=== PATIENT | female | born 1995 | race Caucasian/White ===

== ENCOUNTER 2023-07-06 07:55 | Emergency (ER) | payer SELFPAY ==
[2023-07-06] MEDS: Sodium Chloride 0.9% 10 ML Syringe FLUSH PRN (08:32)
[2023-07-06] MEDS: Sodium Chloride 0.9% 1,000 ML IV STA ×2 (08:45→10:15)
[2023-07-06] MEDS: Ondansetron 4 MG/2 ML SDV IVPUSH ONE (08:45)
[2023-07-06 08:51] LABS: BASOPHILS PERCENT AUTO 0.3 % (0.0-1.0); HEMOGLOBIN 15.4 gm/dl (12.0-16.0); IMMATURE GRAN ABSOLUTE AUTO 0.05 K/mm3 (0.00-0.05); IMMATURE GRAN PERCENT AUTO 0.4 % (0.0-0.4); LYMPHOCYTES PERCENT AUTO 17.5 % (24.0-44.0); MEAN CORPUSCULAR HEMOGLOBIN 31.2 pg (28.0-32.0); MEAN CORPUSCULAR HGB CONC 35.8 g/dl (32.0-36.0); MEAN CORPUSCULAR VOLUME 87.2 fl (83.0-99.0); MEAN PLATELET VOLUME 10.1 fl (9.4-12.3); MONOCYTES ABSOLUTE AUTO 1.2 K/mm3 (0.0-0.8); MONOCYTES PERCENT AUTO 10.5 % (0.0-8.0); NEUTROPHILS ABSOLUTE AUTO 8.3 K/mm3 (1.8-7.7); NEUTROPHILS PERCENT AUTO 71.3 % (41.0-71.0); PLATELET COUNT,PLT 398 K/mm3 (150-400); RED BLOOD CELL COUNT 4.93 M/mm3 (4.10-5.30); WHITE BLOOD CELL COUNT,WBC 11.64 K/mm3 (3.9-11.3)
[2023-07-06 09:05] LABS: A/G RATIO 1.3 (1-2); ALBUMIN 4.8 g/dl (3.4-5.0); ANION GAP 13.3 (5-15); BILIRUBIN TOTAL 1.2 mg/dL (0.2-1.0); BUN/CREATININE RATIO 20.9 (14-18); C-REACTIVE PROTEIN 0.05 mg/dL (<0.30); CALCIUM 9.6 mg/dL (8.5-10.1); CREATININE 1.1 mg/dL (0.55-1.02); EST CRCL DRUG DOSING (CG) 69.04 mL/min; POTASSIUM,K 3.3 mEq/L (3.5-5.1); PROTEIN TOTAL,TP 8.6 g/dl (6.4-8.2)
[2023-07-06 10:10] LABS: APPEARANCE,URINE SLT CLOUDY (Clear); BILIRUBIN,URINE 1+ (Negative); COLOR,URINE YELLOW (Yellow); EPITHELIAL CELLS,URINE 0-5 /hpf (0-5); GLUCOSE,URINE NEGATIVE (Negative); KETONES,URINE 3+ (Negative); LEUKOCYTE ESTERASE,URINE NEGATIVE (Negative); NITRITE,URINE NEGATIVE (Negative); OCCULT BLOOD,URINE TRACE-LYSED (Negative); PH,URINE 5.5 (5.0-8.0); PROTEIN,URINE TRACE (Negative); RBC,URINE 0-5 /hpf (0-5); UROBILINOGEN,URINE 0.2 (0.2-1.0); WBC,URINE 0-5 /hpf (0-5)
[2023-07-06 10:11] LABS: BACTERIA,URINE FEW /hpf (FEW); MUCUS,URINE MODERATE /hpf (FEW)
[2023-07-06] MEDS: Alum Hydrox/Mag Hydrox/Simeth 30 ML, Lidocaine 2% 15 ML PO ONE (11:09)
== END 2023-07-06 12:15 | disposition home or self-care (01) ==
LOC: JD.ED 07:55
DX: R11.2 Nausea with vomiting, unspecified (principal); Z79.899 Other long term (current) drug therapy; Z86.16 Personal history of COVID-19
CPT/HCPCS: 36415; 80053; 81001; 81025; 85025; 86140; 96361; 96374; 99284; A9270; J2405; J3490; J7030; 99283

== ENCOUNTER 2023-07-11 11:09 | Emergency (ER) | payer OTHER ==
[2023-07-11 11:46] LABS: BASOPHILS PERCENT AUTO 0.3 % (0.0-1.0); EOSINOPHILS PERCENT AUTO 0.2 % (0.0-6.0); HEMATOCRIT 43.1 % (37.0-47.0); HEMOGLOBIN 15.2 gm/dl (12.0-16.0); IMMATURE GRAN ABSOLUTE AUTO 0.05 K/mm3 (0.00-0.05); IMMATURE GRAN PERCENT AUTO 0.5 % (0.0-0.4); LYMPHOCYTES ABSOLUTE AUTO 1.7 K/mm3 (1.0-4.8); LYMPHOCYTES PERCENT AUTO 16.9 % (24.0-44.0); MEAN CORPUSCULAR HEMOGLOBIN 30.7 pg (28.0-32.0); MEAN CORPUSCULAR HGB CONC 35.3 g/dl (32.0-36.0); MEAN CORPUSCULAR VOLUME 87.1 fl (83.0-99.0); MONOCYTES ABSOLUTE AUTO 0.9 K/mm3 (0.0-0.8); MONOCYTES PERCENT AUTO 9.2 % (0.0-8.0); NEUTROPHILS ABSOLUTE AUTO 7.2 K/mm3 (1.8-7.7); NEUTROPHILS PERCENT AUTO 72.9 % (41.0-71.0); PLATELET COUNT,PLT 341 K/mm3 (150-400); RED BLOOD CELL COUNT 4.95 M/mm3 (4.10-5.30); WHITE BLOOD CELL COUNT,WBC 9.89 K/mm3 (3.9-11.3)
[2023-07-11 12:04] LABS: A/G RATIO 1.4 (1-2); ALBUMIN 4.6 g/dl (3.4-5.0); ANION GAP 14.8 (5-15); BILIRUBIN TOTAL 0.6 mg/dL (0.2-1.0); BUN/CREATININE RATIO 13.3 (14-18); CALCIUM 9.2 mg/dL (8.5-10.1); CREATININE 1.2 mg/dL (0.55-1.02); EST CRCL DRUG DOSING (CG) 63.93 mL/min; MAGNESIUM 2.3 mg/dL (1.8-2.4); POTASSIUM,K 3.8 mEq/L (3.5-5.1)
[2023-07-11] MEDS: Sodium Chloride 0.9% 1,000 ML IV ONE (12:07)
[2023-07-11 12:10] LABS: INR 1.11; PROTHROMBIN TIME 11.8 SECONDS (9.7-12.0)
[2023-07-11] MEDS: Ondansetron 4 MG/2 ML SDV IVPUSH ONE (12:12)
[2023-07-11] MEDS: Pantoprazole 40 MG Vial IVPUSH ONE (12:15)
[2023-07-11] MEDS: Morphine 4 MG/ML Syringe IVPUSH ONE (12:15)
[2023-07-11] MEDS: Sodium Chloride 0.9% 10 ML Syringe FLUSH PRN (12:16)
[2023-07-11] MEDS: Iopamidol 612 MG/ML 100 ML Bottle IVPUSH ONE (12:33)
[2023-07-11 12:50] LABS: APPEARANCE,URINE CLOUDY (Clear); BILIRUBIN,URINE NEGATIVE (Negative); COLOR,URINE LIGHT YELLOW (Yellow); GLUCOSE,URINE NEGATIVE (Negative); KETONES,URINE 2+ (Negative); LEUKOCYTE ESTERASE,URINE NEGATIVE (Negative); NITRITE,URINE NEGATIVE (Negative); OCCULT BLOOD,URINE TRACE-LYSED (Negative); PH,URINE 7.5 (5.0-8.0); PROTEIN,URINE NEGATIVE (Negative); UROBILINOGEN,URINE 0.2 (0.2-1.0)
[2023-07-11 13:09] LABS: RBC,URINE 0-5 /hpf (0-5); SQUAMOUS EPITHELIAL CELLS,UR 0-5 /hpf (0-5); WBC,URINE 0-5 /hpf (0-5)
[2023-07-11 13:10] LABS: AMORPHOUS SEDIMENT,URINE MANY /hpf (NOT SEEN); BACTERIA,URINE MODERATE /hpf (FEW); MUCUS,URINE FEW /hpf (FEW)
[2023-07-11] MEDS: Promethazine 12.5 MG in Sodium Chloride 0.9% 50 ML IV ONE (13:33)
[2023-07-11] MEDS: metroNIDAZOLE 500 MG Tab PO STA (15:10)
[2023-07-11] MEDS: Levofloxacin/Dextrose 5%-Water 750 MG in Premix Bag 1 BAG IV ONE (15:13)
== END 2023-07-11 14:35 | disposition home or self-care (01) ==
LOC: JD.ED 11:09
DX: K29.00 Acute gastritis without bleeding (principal); K52.9 Noninfective gastroenteritis and colitis, unspecified; N28.9 Disorder of kidney and ureter, unspecified; E86.0 Dehydration; Z86.16 Personal history of COVID-19; Z79.899 Other long term (current) drug therapy
CPT/HCPCS: 36415; 74177; 74177-26; 80053; 81001; 81025; 83605; 83690; 83735; 85025; 85610; 96361; 96365; 96375; 99284; 99284-25; A9270-GY; C9113; J1956; J2270; J2405; J3490; J7030; Q9967

== ENCOUNTER 2023-10-11 09:48 | Emergency (ER) | payer SELFPAY ==
[2023-10-11] MEDS: Iopamidol 755 Mg/ML 100 ML Bottle IVPUSH ONE (10:34)
[2023-10-11] MEDS: HYDROmorphone 0.5 MG/0.5 ML Syringe IVPUSH ONE (10:35)
[2023-10-11] MEDS: Sodium Chloride 0.9% 10 ML Syringe FLUSH PRN ×2 (10:35→11:07)
[2023-10-11] MEDS: Ondansetron 4 MG/2 ML SDV IVPUSH ONE (10:35)
[2023-10-11] MEDS: Sodium Chloride 0.9% 1,000 ML IV STA (10:35)
[2023-10-11 10:50] LABS: BASOPHILS PERCENT AUTO 0.1 % (0.0-1.0); EOSINOPHILS PERCENT AUTO 0.1 % (0.0-6.0); HEMATOCRIT 39.9 % (37.0-47.0); HEMOGLOBIN 14.2 gm/dl (12.0-16.0); IMMATURE GRAN ABSOLUTE AUTO 0.03 K/mm3 (0.00-0.05); IMMATURE GRAN PERCENT AUTO 0.3 % (0.0-0.4); LYMPHOCYTES ABSOLUTE AUTO 1.6 K/mm3 (1.0-4.8); LYMPHOCYTES PERCENT AUTO 14.8 % (24.0-44.0); MEAN CORPUSCULAR HEMOGLOBIN 31.1 pg (28.0-32.0); MEAN CORPUSCULAR HGB CONC 35.6 g/dl (32.0-36.0); MEAN CORPUSCULAR VOLUME 87.5 fl (83.0-99.0); MEAN PLATELET VOLUME 9.8 fl (9.4-12.3); MONOCYTES ABSOLUTE AUTO 1.2 K/mm3 (0.0-0.8); MONOCYTES PERCENT AUTO 10.7 % (0.0-8.0); NEUTROPHILS ABSOLUTE AUTO 8.2 K/mm3 (1.8-7.7); PLATELET COUNT,PLT 359 K/mm3 (150-400); RED BLOOD CELL COUNT 4.56 M/mm3 (4.10-5.30); WHITE BLOOD CELL COUNT,WBC 11.09 K/mm3 (3.9-11.3)
[2023-10-11 10:52] LABS: A/G RATIO 1.3 (1-2); ALBUMIN 5.1 g/dl (3.4-5.0); ANION GAP 17.6 (5-15); BUN/CREATININE RATIO 19.1 (14-18); CREATININE 1.1 mg/dL (0.55-1.02); EST CRCL DRUG DOSING (CG) 67.15 mL/min; MAGNESIUM 2.5 mg/dL (1.8-2.4); POTASSIUM,K 3.6 mEq/L (3.5-5.1)
[2023-10-11] MEDS: Metoclopramide 10 MG/2 ML SDV IVPUSH ONE (12:04)
[2023-10-11 12:07] LABS: APPEARANCE,URINE CLEAR (Clear); BILIRUBIN,URINE NEGATIVE (Negative); COLOR,URINE YELLOW (Yellow); GLUCOSE,URINE NEGATIVE (Negative); KETONES,URINE 3+ (Negative); LEUKOCYTE ESTERASE,URINE NEGATIVE (Negative); NITRITE,URINE NEGATIVE (Negative); OCCULT BLOOD,URINE NEGATIVE (Negative); PH,URINE 7.5 (5.0-8.0); PROTEIN,URINE TRACE (Negative); UROBILINOGEN,URINE 0.2 (0.2-1.0)
[2023-10-11 13:17] LABS: BACTERIA,URINE FEW /hpf (FEW); EPITHELIAL CELLS,URINE 0-5 /hpf (0-5); MUCUS,URINE NOT SEEN /hpf (FEW); RBC,URINE 0-5 /hpf (0-5); WBC,URINE 0-5 /hpf (0-5)
== END 2023-10-11 13:15 | disposition home or self-care (01) ==
LOC: JD.ED 09:48
DX: K52.9 Noninfective gastroenteritis and colitis, unspecified (principal); Z86.16 Personal history of COVID-19
CPT/HCPCS: 36415; 74177; 80053; 81001; 83690; 83735; 84703; 85025; 96361; 96374; 96375; 99284; J1170; J2405; J2765; J3490; J7030; Q9967

== ENCOUNTER 2024-03-01 10:19 | Emergency (ER) | payer SELFPAY ==
[2024-03-01] MEDS: Ondansetron 4 MG/2 ML SDV IVPUSH ONE ×2 (10:41→11:00)
[2024-03-01] MEDS: Sodium Chloride 0.9% 1,000 ML IV ONE ×2 (10:47→11:28)
[2024-03-01] MEDS: Ketorolac 30 MG/ML SDV IVPUSH ONE (11:28)
[2024-03-01] MEDS: diphenhydrAMINE 50 MG/ML SDV IVPUSH ONE (11:28)
[2024-03-01] MEDS: Metoclopramide 10 MG/2 ML SDV IVPUSH ONE (11:28)
[2024-03-01 11:39] LABS: BASOPHILS PERCENT AUTO 0.1 % (0.0-1.0); EOSINOPHILS ABSOLUTE AUTO 0.1 K/mm3 (0.0-0.4); EOSINOPHILS PERCENT AUTO 0.7 % (0.0-6.0); HEMATOCRIT 43.7 % (37.0-47.0); HEMOGLOBIN 15.4 gm/dl (12.0-16.0); IMMATURE GRAN ABSOLUTE AUTO 0.03 K/mm3 (0.00-0.05); IMMATURE GRAN PERCENT AUTO 0.4 % (0.0-0.4); LYMPHOCYTES ABSOLUTE AUTO 1.4 K/mm3 (1.0-4.8); LYMPHOCYTES PERCENT AUTO 17.6 % (24.0-44.0); MEAN CORPUSCULAR HEMOGLOBIN 30.4 pg (28.0-32.0); MEAN CORPUSCULAR HGB CONC 35.2 g/dl (32.0-36.0); MEAN CORPUSCULAR VOLUME 86.4 fl (83.0-99.0); MONOCYTES ABSOLUTE AUTO 0.8 K/mm3 (0.0-0.8); MONOCYTES PERCENT AUTO 10.5 % (0.0-8.0); NEUTROPHILS ABSOLUTE AUTO 5.4 K/mm3 (1.8-7.7); NEUTROPHILS PERCENT AUTO 70.7 % (41.0-71.0); PLATELET COUNT,PLT 374 K/mm3 (150-400); RED BLOOD CELL COUNT 5.06 M/mm3 (4.10-5.30); WHITE BLOOD CELL COUNT,WBC 7.68 K/mm3 (3.9-11.3)
[2024-03-01 11:44] LABS: A/G RATIO 1.2 (1-2); ALBUMIN 4.3 g/dl (3.4-5.0); ANION GAP 15.2 (5-15); BILIRUBIN TOTAL 0.7 mg/dL (0.2-1.0); BUN/CREATININE RATIO 15.5 (14-18); CALCIUM 8.9 mg/dL (8.5-10.1); CREATININE 1.1 mg/dL (0.55-1.02); EST CRCL DRUG DOSING (CG) 65.52 mL/min; MAGNESIUM 2.4 mg/dL (1.8-2.4); POTASSIUM,K 3.2 mEq/L (3.5-5.1); PROTEIN TOTAL,TP 7.8 g/dl (6.4-8.2)
[2024-03-01] MEDS: Potassium Chloride 20 MEQ Tab.ER PO ONE (11:59)
== END 2024-03-01 13:04 | disposition home or self-care (01) ==
LOC: JD.ED 10:19
DX: R10.10 Upper abdominal pain, unspecified (principal); R11.2 Nausea with vomiting, unspecified; E86.0 Dehydration; E87.6 Hypokalemia; Z86.16 Personal history of COVID-19
CPT/HCPCS: 36415; 80053; 83690; 83735; 84703; 85025; 96361; 96374; 96375; 99284; A9270; J1200; J1885; J2405; J2765; J7030

== ENCOUNTER 2024-06-28 11:28 | Emergency (ER) | payer SELFPAY ==
[2024-06-28] MEDS ORDERED: Sodium Chloride 0.9% 10 ML Syringe FLUSH PRN (11:59)
[2024-06-28] MEDS: Ondansetron 4 MG/2 ML SDV ONE (12:07)
[2024-06-28] MEDS: Ondansetron 4 MG/2 ML SDV IVPUSH ONE (12:07)
[2024-06-28] MEDS: Sodium Chloride 0.9% 1,000 ML IV STA (12:07)
[2024-06-28] MEDS: Sodium Chloride 0.9% 1,000 ML ONE (12:07)
[2024-06-28 12:13] LABS: BASOPHILS PERCENT AUTO 0.5 % (0.0-1.0); EOSINOPHILS PERCENT AUTO 0.1 % (0.0-6.0); HEMOGLOBIN 15.3 gm/dl (12.0-16.0); IMMATURE GRAN ABSOLUTE AUTO 0.04 K/mm3 (0.00-0.05); IMMATURE GRAN PERCENT AUTO 0.5 % (0.0-0.4); LYMPHOCYTES ABSOLUTE AUTO 1.7 K/mm3 (1.0-4.8); LYMPHOCYTES PERCENT AUTO 21.1 % (24.0-44.0); MEAN CORPUSCULAR HEMOGLOBIN 30.2 pg (28.0-32.0); MEAN CORPUSCULAR HGB CONC 34.8 g/dl (32.0-36.0); MONOCYTES ABSOLUTE AUTO 0.8 K/mm3 (0.0-0.8); MONOCYTES PERCENT AUTO 10.5 % (0.0-8.0); NEUTROPHILS ABSOLUTE AUTO 5.4 K/mm3 (1.8-7.7); NEUTROPHILS PERCENT AUTO 67.3 % (41.0-71.0); PLATELET COUNT,PLT 417 K/mm3 (150-400); RED BLOOD CELL COUNT 5.06 M/mm3 (4.10-5.30); WHITE BLOOD CELL COUNT,WBC 7.97 K/mm3 (3.9-11.3)
[2024-06-28] MEDS: Famotidine 20 MG/2 ML SDV IVPUSH ONE (12:32)
[2024-06-28 12:50] LABS: A/G RATIO 1.2 (1-2); ALANINE AMINOTRANSFERASE,ALT 26 U/L (14-59); ALBUMIN 4.4 g/dl (3.4-5.0); ALKALINE PHOSPHATASE 61 U/L (46-116); ANION GAP 13.4 (5-15); ASPARTATE AMNIOTRANSFERASE,AST 14 U/L (15-37); BILIRUBIN TOTAL 0.8 mg/dL (0.2-1.0); BLOOD UREA NITROGEN,BUN 19 mg/dL (7-18); BUN/CREATININE RATIO 17.3 (14-18); CALCIUM 9.2 mg/dL (8.5-10.1); CARBON DIOXIDE,CO2 30 mEq/L (21-32); CHLORIDE,CL 96 mEq/L (98-107); CREATININE 1.1 mg/dL (0.55-1.02); EST CRCL DRUG DOSING (CG) 69.13 mL/min; ESTIMATED GFR 71 mL/min (>60); GLUCOSE RANDOM 146 mg/dL (70-99); LIPASE 46 U/L (16-77); POTASSIUM,K 3.4 mEq/L (3.5-5.1); PROTEIN TOTAL,TP 8.2 g/dl (6.4-8.2); SODIUM,NA 136 mEq/L (136-145)
[2024-06-28 12:53] LABS: C-REACTIVE PROTEIN < 0.05 mg/dL (<0.30)
[2024-06-28] MEDS: diphenhydrAMINE 50 MG/ML SDV IVPUSH ONE (13:29)
[2024-06-28] MEDS: Metoclopramide 10 MG/2 ML SDV IVPUSH ONE (13:31)
[2024-06-28 13:52] LABS: APPEARANCE,URINE CLEAR (Clear); BILIRUBIN,URINE NEGATIVE (Negative); COLOR,URINE YELLOW (Yellow); GLUCOSE,URINE NEGATIVE (Negative); KETONES,URINE TRACE (Negative); LEUKOCYTE ESTERASE,URINE NEGATIVE (Negative); NITRITE,URINE NEGATIVE (Negative); OCCULT BLOOD,URINE NEGATIVE (Negative); PH,URINE 8.5 (5.0-8.0); PROTEIN,URINE NEGATIVE (Negative); UROBILINOGEN,URINE 0.2 (0.2-1.0)
[2024-06-28] MEDS: Alum Hydrox/Mag Hydrox/Simeth 30 ML, Lidocaine 2% 15 ML PO ONE (14:04)
[2024-06-28] MEDS: Sucralfate Suspension 1 GM/10 ML Cup PO ONE (15:32)
== END 2024-06-28 15:35 | disposition home or self-care (01) ==
LOC: JD.ED 11:28
DX: K21.9 Gastro-esophageal reflux disease without esophagitis (principal); R11.2 Nausea with vomiting, unspecified; Z86.16 Personal history of COVID-19; Z79.899 Other long term (current) drug therapy
CPT/HCPCS: 36415; 80053; 81003; 83690; 84703; 85025; 86140; 96374; 96375; 99284; A9270; J1200; J2405; J2765; J7030

== ENCOUNTER 2024-06-29 08:26 | Emergency (ER) | payer SELFPAY ==
[2024-06-29] MEDS: Sodium Chloride 0.9% 1,000 ML IV SCH (09:26)
[2024-06-29] MEDS: Pantoprazole 40 MG Vial IVPUSH ONE ×2 (09:26→10:49)
[2024-06-29] MEDS: Ondansetron 4 MG/2 ML SDV IVPUSH ONE (09:26)
[2024-06-29] MEDS: Famotidine 20 MG/2 ML SDV IVPUSH ONE (09:27)
[2024-06-29] MEDS: diphenhydrAMINE 25 MG Cap PO ONE (10:49)
[2024-06-29] MEDS: Metoclopramide 10 MG/2 ML SDV IVPUSH ONE (10:49)
== END 2024-06-29 12:34 | disposition home or self-care (01) ==
LOC: JD.ED 08:26
DX: K21.9 Gastro-esophageal reflux disease without esophagitis (principal); Z79.899 Other long term (current) drug therapy; Z86.16 Personal history of COVID-19; Z87.891 Personal history of nicotine dependence
CPT/HCPCS: 96361; 96374; 96375; 96376; 99283; 99283-25; A9270-GY; J2405; J2470; J2765; J7030

== ENCOUNTER 2024-10-05 05:40 | Emergency (ER) | payer SELFPAY ==
[2024-10-05] MEDS: droPERidol 2.5 MG/ML SDV IV ONE (06:40)
[2024-10-05 06:56] LABS: BASOPHILS ABSOLUTE AUTO 0.0 K/mm3 (0.0-0.2); BASOPHILS PERCENT AUTO 0.2 % (0.0-1.0); EOSINOPHILS ABSOLUTE AUTO 0.0 K/mm3 (0.0-0.4); EOSINOPHILS PERCENT AUTO 0.1 % (0.0-6.0); IMMATURE GRAN ABSOLUTE AUTO 0.04 K/mm3 (0.00-0.05); IMMATURE GRAN PERCENT AUTO 0.3 % (0.0-0.4); LYMPHOCYTES ABSOLUTE AUTO 1.2 K/mm3 (1.0-4.8); LYMPHOCYTES PERCENT AUTO 9.6 % (24.0-44.0); MEAN PLATELET VOLUME 10.2 fl (9.4-12.3); MONOCYTES ABSOLUTE AUTO 1.0 K/mm3 (0.0-0.8); MONOCYTES PERCENT AUTO 8.6 % (0.0-8.0); NEUTROPHILS ABSOLUTE AUTO 9.8 K/mm3 (1.8-7.7); NEUTROPHILS PERCENT AUTO 81.2 % (41.0-71.0); NRBC ABSOLUTE 0.00 (0.00-0.02); NRBC PERCENT 0.0 % (0.0-0.2); PLATELET COUNT,PLT 376 K/mm3 (150-400); RED BLOOD CELL COUNT 4.69 M/mm3 (4.10-5.30); WHITE BLOOD CELL COUNT,WBC 12.11 K/mm3 (3.9-11.3)
[2024-10-05 07:20] LABS: A/G RATIO 1.3 (1-2); ALANINE AMINOTRANSFERASE,ALT 84.0 U/L (14-59); ASPARTATE AMNIOTRANSFERASE,AST 38.0 U/L (15-37); BILIRUBIN TOTAL 0.6 mg/dL (0.2-1.0); BLOOD UREA NITROGEN,BUN 19.0 mg/dL (7-18); CARBON DIOXIDE,CO2 29.0 mEq/L (21-32); CHLORIDE,CL 93.0 mEq/L (98-107); CREATININE 0.7 mg/dL (0.55-1.02); EST CRCL DRUG DOSING (CG) 108.63 mL/min; ESTIMATED GFR 121.0 mL/min (>60); GLUCOSE RANDOM 116.0 mg/dL (70-99); PHOSPHORUS 3.8 mg/dL (2.6-4.7); POTASSIUM,K 3.5 mEq/L (3.5-5.1); PROTEIN TOTAL,TP 8.1 g/dl (6.4-8.2); SODIUM,NA 133.0 mEq/L (136-145)
[2024-10-05 07:23] LABS: LACTIC ACID 0.9 mmol/L (0.4-2.0)
[2024-10-05] MEDS: Sodium Chloride 0.9% 10 ML Syringe FLUSH PRN (07:55)
[2024-10-05 08:01] LABS: APPEARANCE,URINE CLEAR (Clear); GLUCOSE,URINE NEGATIVE (Negative); OCCULT BLOOD,URINE NEGATIVE (Negative)
[2024-10-05] MEDS: Ondansetron 4 MG/2 ML SDV IVPUSH ONE (08:29)
[2024-10-05 08:43] LABS: SQUAMOUS EPITHELIAL CELLS,UR 0-5 /hpf (0-5)
[2024-10-05] MEDS ORDERED: Iopamidol 612 MG/ML 100 ML Bottle IVPUSH ONE (09:45)
[2024-10-05] MEDS: Sodium Chloride 0.9% 10 ML Syringe FLUSH ONE (09:54)
[2024-10-05] MEDS: LORazepam 2 MG/ML SDV IVPUSH ONE (09:59)
== END 2024-10-05 11:30 | disposition home or self-care (01) ==
LOC: JD.ED 05:40
DX: R11.2 Nausea with vomiting, unspecified (principal); Z79.899 Other long term (current) drug therapy; Z86.16 Personal history of COVID-19
CPT/HCPCS: 36415; 74177; 80053; 81001; 83605; 83690; 83735; 84100; 84703; 85025; 96361; 96374; 96375; 99284; J1308; J1790; J2060; J2405; J2765; J7030; J1171